=== PATIENT | female | born 1950 | race Caucasian/White ===

== ENCOUNTER 2019-12-13 07:09 | Observation (INO) | payer MEDICARE, OTHER, SELFPAY ==
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
[2019-12-06 09:02] LABS: Magnesium 1.8 mg/dL (1.6-2.6)
[2019-12-13] VITALS (11 sets, daily range): BP systolic 104–171; BP diastolic 49–82; PULSE 45–55; RESP 16–18; TEMP 36.1–36.9; O2SAT 98–100; BMI 44.4
[2019-12-13] MEDS: Gabapentin 600 MG Tablet PO (07:38)
[2019-12-13] MEDS: Acetaminophen 500 MG Tablet 1000 MG PO ×3 (07:38→21:54)
[2019-12-13] MEDS: Celecoxib 200 MG Capsule 400 MG PO (07:38)
[2019-12-13 08:26] LABS: Bedside Glucose 170 mg/dL (70-110)
--- NOTE | 2019-12-13 09:00 | RAD_ITS ---
STUDY: X-RAY - PELVIS AND RIGHT HIP REASON FOR EXAM: Female, 69 years old. TOTAL ANTERIOR RT HIP TECHNIQUE: 3 views of the pelvis and hip. COMPARISON: None. FINDINGS: Fluoroscopy the right hip was utilized and operating room during arthroplasty and 3 images suspended for interpretation. RAD/Hip 1 view with Pelvis IMPRESSION: Fluoroscopy during hip arthroplasty. Electronically Signed: Lincoln Haro MD at 17:12 EDT Tel , Service support ,
--- NOTE | 2019-12-13 09:00 | HIP_PTH ---
PATIENT: KAMI HICKS LOC: [facility]3 U#:[id number] AGE/SX: 69/F ROOM: MS322 RE12/13/[address]: Dr. Natividad Self MD : 1950 BED: 1 DIS: 12/14/2019 SPEC #: [id number] RECD: 12/13/19 11:23 STATUS: JOSE ANTONIO TONY #: [id number] JAYSON: 12/13/19 09:[address]: Anibal River DEPT: SURGICAL PATHOLOGY RECD BY: Soni Medina ENTERED: 12/13/19 13:36 SP TYPE: TOTAL HIP OTHR DR: Dr. Fifi Garay, DO Tissues: Hip, NOS Procedures: Decalcification bone/plaque Surgery Specimen Level IV HEADER OPERATION: Total hip direct anterior approach PRE-OP DIAGNOSIS: Severe right hip osteoarthritis TISSUE SUBMITTED: Right hip bone and soft tissue MICROSCOPIC DIAGNOSIS Bone and soft tissue of right hip, total hip resection: Severe degenerative joint disease. Mild synovial hyperplasia. AM:logan 12/18/19 MICROSCOPIC DESCRIPTION Slides are reviewed. GROSS DESCRIPTION Received is one container labeled with the patient's name and designated right hip bone and soft tissue. The specimen consists of a love femoral head with portion of femoral neck. The femoral head measures 5 x 5 x 3.5 cm. A detached portion of bone is also noted consistent with portion of femoral neck measuring 3.5 x 2.5 x 1.2 cm. The articular surface displays prominent osteophyte formation, eburnation and bone erosion. Also present in the specimen container are multiple irregular fragments of bone reamings and pink-yellow soft tissue measuring in aggregate 8 x 8 x 2 cm. Florist Helper sections are submitted in two cassettes as follows: 1 - soft tissue, 2 - bone after decalcification. / SJ:logan 12/13/19 TC:5 CPT: 86611, 92523
[2019-12-13] MEDS: Cefazolin 2 GM in 0.9% Normal Saline 100 ML IV (09:07)
[2019-12-13] MEDS: dexAMETHasone 10 MG/ML Vial IV (09:16)
--- NOTE | 2019-12-13 10:27 | OP.PCM_ITS ---
Report of Operation Date of Procedure: 12/13/19 Pre-Operative Diagnosis: Right hip primary osteoarthritis with femoral head collapse Post-Operative Diagnosis: Right hip primary osteoarthritis with femoral head collapse Surgery/Procedure Performed:: Right minimally invasive direct anterior total hip replacement Description of Surgical Findings:: Stable hip, equal leg lengths based on radiographs automotive sales specialist: Cristian Peters Type of Anesthesia:: Spinal Anesthesiologist: Dallas Reyes Special Medications: 2 g Ancef, 1 g TXA at incision, 1 g TXA closure, 10 mg Decadron, joint cocktail (5 mg Duramorph, 30 mL of 0.5% Ropivicaine, 1000 units of epinephrine, 30 mg of Toradol) Specimen's removed: Femoral head Estimated Blood Loss (mL): 200 Fluids Replaced: 800 mL crystalloid Description of Procedure: Components used: 1. Accolade 2 Rosi femoral stem size 5 127? 2. Rosi trident 2 acetabular shell size 54 mm 3. Rosi X3 polyethylene 42E 4. [place] Biolox delta 28 mm, -4 mm femoral head 5. Rosi MDM metal liner Brief history operative indications: 69 yo f who failed conservative measures for their hip osteoarthritis. X-rays were consistent with osteoarthritis including joint space narrowing, osteophyte formation and subchondral cysts. Total hip replacement was discussed with the patient with risks and benefits including but not limited to blood loss, DVTs, PEs, neurovascular damage, dislocation, general risks of anesthesia including loss of life. Patient demonstrated an understanding medical clearance is obtained the patient was consented for surgery. Due to the patient's femoral head collapse her activity was existing with that of someone who had a femoral hip fracture. Due to this we discussed at length her weight and how this can affect her outcome. However based on her significant loss of activities of daily living and inability to care for herself we elected to proceed. Procedure: On the date of procedure the patient's R hip was marked in the preoperative area. Patient was then taken back to the operating room where anesthesia assumed control of the C-spine and airway and administered anesthetic. Patient was transferred to the operating table and placed in the supine position. The hips were placed at the break of the bed and a sacral bump was placed. The R lower extremity was then prepped out in a sterile fashion using chlorhexidine while the surgeon scrubbed. The PA was vital in the positioning of the patient. Upon reentering the room the R lower extremity was draped in the standard orthopedic fashion and the incision was marked. A timeout was called and everyone agreed upon the side, the site, the procedure be performed, antibody given, and patient's identity. At this time incision was made through skin, subcutaneous tissue, and fat down to fascia. The fascia was then incised and the TFL was retracted laterally. A retractor was placed on the lateral border of the femoral neck. Attention was directed to the inferior portion of the approach and all crossing vessels were identified and appropriately coagulated. A retractor was then placed on the medial portion of the femoral neck. The anterior capsule was then cleared of all soft tissue and then H shaped capsu lotomy was made. The retractors were then placed inside the capsule. The femoral neck was identified and a cleanup cut was made. At this time a power corkscrew was used to remove the femoral head. Attention was then turned toward the acetabulum where the soft tissues were appropriately retracted and the acetabulum was sequentially reamed to 54 mm. A 54 mm cup was then selected and impacted into place. 2 screws were placed orthogonally. Acetabular liner was impacted into place and locking mechanism was verified. The position of the acetabular cup was then verified under live fluoroscopy. Attention was then turned to the femur. Soft tissue releases on the medial and lateral femoral neck were appropriately done, the leg was externally rotated and lateralized. A Jones retractor was placed medially and proximally to the greater trochanter this allowed appropriate visualization and exposure of the femoral canal. Rongeour was then used to remove excess lateral bone. A canal f magdi and entry broach were used to open the proximal canal. Once we verified we were down the femoral canal we subsequently broached up to a size 5 femur. The appropriate neck was placed in the previously selected head was trialed with a -4 mm neck. Traction was pulled and the hip was reduced with internal rotation. Once it was appropriately reduced and stability was checked. There was minimal shuck, equal leg lengths and appropriate stability with hyperextension and external rotation as well as with 90? flexion and internal rotation. Fluoroscopy was then also used to verify the position of the components and leg lengths using the contralateral side for comparison. The trial components were then dislocated the proximal femur was again exposed and the components were removed from the wound. The final components were verified and opened. The wound was copiously irrigated out with normal saline. The acetabulum was checked for any residual debris. The final components were placed and impacted. Traction and internal rotation were again used to reduce the hip. After adequate reduction the hip remained stable with appropriate leg lengths. The final components were once again checked with live fluoroscopy and were found to be satisfactory. The wound was then copiously irrigated with normal saline once more, and hemostasis was obtained. Closure was then done using #1 Vicryl runner to close the fascia. A 2-0 vicryl interuppted sutures were used to close the subcutaneous skin. A 3-0 Monocryl and Steri-Strips were used for final skin closure. A Silverlon dressing was placed. Patient was awakened by anesthesia and transferred to the [facility]. Patient was then transferred to the PACU for recovery. Postoperative plan: Patient will get 24 hours postop antibiotics. Patient will get in-house physical therapy and will be weight-bear as tolerated. Patient will follow up in office in 2 weeks for a wound check and x-rays. Aspirin 81 mg twice daily. - Complications No intraoperative complications - Admit VTE Documentation VTE Present on Admission: No VTE Mechan Device Prophylaxis: SCD's, Thigh High VIRIDIANA Hose VTE Pharm Prophylaxis ordered?: Yes
[2019-12-13] MEDS: Lactated Ringers 1,000 ML 999 ML IV (11:33)
--- NOTE | 2019-12-13 11:50 | RAD_ITS ---
STUDY: X-RAY - PELVIS AND RIGHT HIP REASON FOR EXAM: Female, 69 years old. Post op TECHNIQUE: 2 views of the pelvis and hip. COMPARISON: None. FINDINGS: The patient is status post right hip preplacement. There is good alignment. Postoperative soft tissue changes. RAD/Hip Min 2 Views (Portable) IMPRESSION: Status post right total hip replacement. There is good alignment. Postoperative soft tissue changes. Electronically Signed: Heriberto Vyas, at 13:21 EDT , Service support ,
[2019-12-13 12:26] LABS: Bedside Glucose 175 mg/dL (70-110)
[2019-12-13] MEDS: Lactated Ringers 1,000 ML 125 ML IV (12:30)
[2019-12-13] MEDS: Senna/Docusate Sodium 1 Tablet 2 TABLET PO ×2 (15:17→21:55)
[2019-12-13] MEDS: Famotidine 20 MG Tablet PO (15:17)
--- NOTE | 2019-12-13 16:32 | CASEMGMT ---
Social Work Note PT updated this worker that pt is requesting SNF at discharge. SW in to speak with pt. SW introduced self and role at [facility]. Pt is alert and orientated x3, confirms she wishes to discharge to SNF and prefers [facility] TCU. SW provided pt with list of SNF that accept pt's insurance. Pt still prefers [facility] TCU. SW placed a call to referral line and provided TCU referral to [facility]. [facility] TCU does have beds available, will review referral. 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
[2019-12-13] MEDS: Cefazolin 1 GM/50 ML BAG IV (18:04)
[2019-12-13] MEDS: Aspirin 81 MG TAB.CHEW PO (18:05)
[2019-12-13] MEDS: Pravastatin 40 MG Tablet PO (21:55)
[2019-12-13] MEDS: Lactated Ringers 1,000 ML 100 ML IV (22:00)
[2019-12-14] MEDS: Cefazolin 1 GM/50 ML BAG IV (00:30)
[2019-12-14 03:15] VITALS: BP 126/51; PULSE 50; RESP 18; TEMP 36.4; O2SAT 98
[2019-12-14 06:05] LABS: Hematocrit 34.6 % (37-47); Hemoglobin 11.1 g/dL (12.0-15.0); Mean Corp Hgb Conc 32.1 g/dL (32-36); Mean Corpuscular Hgb 30.7 pg (27.0-32.0); Mean Corpuscular Volume 95.6 fL (81-99); Mean Platelet Vol. 11.9 fl (6.2-12.0); Platelet Count 233 K/mm3 (150-450); RBC Distribution Width CV 13.8 % (11.6-14.6); RBC Distribution Width SD 48.9 fl (35.1-43.9); Red Blood Count 3.62 M/mm3 (4.2-5.4); White Blood Count 7.1 K/mm3 (4.4-11.0)
[2019-12-14 06:26] LABS: Anion Gap 3 (5-15); BUN 16 mg/dL (7-18); Calcium,Total 9.2 mg/dL (8.5-10.1); Chloride 108 mmol/L (98-107); Creatinine, Serum 0.84 mg/dL (0.55-1.02); EST Glomerular Filtration Rate 71 mL/min (>60); Est Glom Filt Rate - Afr Amer 86 mL/min (>60); Estimated Creatinine Clearance 46.35 ml/min; Glucose 135 mg/dL (74-106); Potassium 4.6 mmol/L (3.5-5.1); Sodium Level 140 mmol/L (136-145)
[2019-12-14] MEDS: Acetaminophen 500 MG Tablet 1000 MG PO ×2 (06:36→13:43)
[2019-12-14] MEDS: Levothyroxine 50 MCG Tablet PO (06:36)
[2019-12-14 07:17] VITALS: BP 130/47; PULSE 53; RESP 18; TEMP 36.5; O2SAT 99
[2019-12-14 07:44] VITALS: O2SAT 97
[2019-12-14] MEDS: Magnesium Chloride 64 MG Delay Rel.Tablet 128 MG PO (09:04)
[2019-12-14] MEDS: Famotidine 20 MG Tablet PO (09:05)
[2019-12-14] MEDS: Aspirin 81 MG TAB.CHEW PO ×2 (09:05→16:42)
[2019-12-14] MEDS: Multivitamins,Therapeutic Tablet 1 TABLET PO (09:05)
[2019-12-14] MEDS: Senna/Docusate Sodium 1 Tablet 2 TABLET PO (09:05)
[2019-12-14] MEDS: Calcium Carbonate 500 MG Tablet PO (09:05)
[2019-12-14] MEDS: Pantoprazole Sodium 20 MG Tablet PO (09:06)
[2019-12-14] MEDS: Atenolol 50 MG Tablet PO (09:06)
[2019-12-14] MEDS: Celecoxib 200 MG Capsule PO (09:06)
--- NOTE | 2019-12-14 10:55 | PN.ORTHO_ITS ---
Subjective: The patient was sitting in bed upon examination. Patient denies any chest pain, shortness of breath, dizziness, lightheadedness, nausea or vomiting, or calf pain. Pain is controlled on medications. No adverse overnight events. Overall patient has been doing well. She has tolerated physical therapy well. She does have pain when she is up walking. Pain is been controlled on medications. Plan is for patient to go to the transitional care unit today. Objective: Vital signs stable and afebrile. Patient is able to plantarflex and dorsiflex actively. Sensation is intact to light touch to saphenous, sural, superficial and deep peroneal, and tibial distribution. Dressing is clean dry and intact. Negative Homans bilaterally, negative signs and symptoms of DVT. - Physical Exam Vitals/I&O's: Vital Signs Temp Pulse Resp BP Pulse Ox 97.7 F L 53 L 18 130/47 H 97 12/14/19 07:17 12/14/19 07:17 12/14/19 07:17 12/14/19 07:17 12/14/19 07:44 Oxygen Flow Rate (L/min) 6 Oxygen Delivery Method Room Air Weight: 106.7 kg Body Mass Index (BMI) 44.4 Finger Stick Blood Glucose 175 Intake and Output for Last 24 Hours 12/12/19 12/13/19 12/14/19 23:59 23:59 23:59 Intake Total 3246.50 / 3246.50 1011.67 / 1011.67 Balance 3246.50 / 3246.50 1011.67 / 1011.67 General: Alert, Oriented x3, Cooperative, No apparent distress Laboratory Results 12/13/19 12:19: POC Glucose 175 H 12/14/19 05:40: WBC 7.1, RBC 3.62 L, Hgb 11.1 L, Hct 34.6 L, MCV 95.6, MCH 30.7, MCHC 32.1, RDW Std Deviation 48.9 H, RDW Coeff of Jaclyn 13.8, Plt Count 233, MPV 11.9 12/14/19 05:40: Sodium 140, Potassium 4.6, Chloride 108 H, Carbon Dioxide 29.0, Anion Gap 3 L, BUN 16, Creatinine 0.84, Estim Creat Clear Calc 46.35, Est GFR (MDRD) Af Amer 86, Est GFR (MDRD) Non-Af 71, BUN/Creatinine Ratio 19.0, Glucose 135 H, Calcium 9.2 Current Medications Acetaminophen (Acetaminophen 500 Mg Tablet) 1,000 mg PO Q8 [facility] Last Admin: 12/14/19 06:36 Dose: 1,000 mg Documented by: Aspirin (Aspirin 81 Mg Tab.Chew) 81 mg PO BIDCM [facility] Last Admin: 12/14/19 09:05 Dose: 81 mg Documented by: Atenolol (Atenolol 50 Mg Tablet) 50 mg PO DAILY [facility] Last Admin: 12/14/19 09:06 Dose: 50 mg Documented by: Calcium Carbonate (Calcium Carbonate 500 Mg Tablet) [facility] Admin: 12/14/19 09:05 Dose: 500 mg Documented by: Celecoxib (Celecoxib 200 Mg Capsule) 200 mg PO DAILY [facility] Last Admin: 12/14/19 09:06 Dose: 200 mg Documented by: Enteral Nutritional Formula (Ensure Surgery 237 Ml Liquid) 237 ml PO TIDCM [facility] Last Admin: 12/14/19 09:05 Dose: Not Given Documented by: Ergocalciferol (Ergocalciferol 50,000 Unit Capsule) 50,000 unit PO Q7D [facility] Famotidine (Famotidine 20 Mg Tablet) 20 mg PO DAILY [facility] Last Admin: 12/14/19 09:05 Dose: 20 mg Documented by: Sodium Chloride () 250 mls @ 15 mls/hr IV .[id number] PRN PRN Reason: Saline Flush Sodium Chloride () 250 mls @ 15 mls/hr IV .[id number] PRN PRN Reason: Additional IVPB Infusion Insulin Human Lispro (Insulin Lispro 100 Unit/Ml Insuln.Pen) 1 - 6 unit SC Q4H PRN PRN; Protocol PRN Reason: BG>/= 180, SEE PROTOCOL Ketorolac Tromethamine (Ketorolac 15 Mg/Ml Vial) 15 mg IV Q6H PRN PRN PRN Reason: Pain Score 1-5 Stop: 12/15/19 07:11 Levothyroxine Sodium (Levothyroxine 50 Mcg Tablet) 50 mcg PO DAILY@0600 [facility] Last Admin: 12/14/19 06:36 Dose: 50 mcg Documented by: Magnesium Chloride (Magnesium Chloride 64 Mg Delay Rel.Tablet) 128 mg PO DAILY [facility] Last Admin: 12/14/19 09:04 Dose: 128 mg Documented by: Morphine Sulfate (Morphine 2 Mg/Ml Syringe) 2 - 4 mg IV Q2H PRN PRN PRN Reason: Pain Score 4-10 Morphine Sulfate (Morphine 4 Mg/Ml Syringe) 2 - 4 mg IV Q2H PRN PRN PRN Reason: Pain Score 4-10 Multivitamins (Multivitamins,Therapeutic Tablet) 1 tablet PO DAILY@0800 [facility] Last Admin: 12/14/19 09:05 Dose: 1 tablet Documented by: Ondansetron HCl (Ondansetron Odt 4 Mg Tablet) 4 mg PO Q8H PRN PRN PRN Reason: NAUSEA Ondansetron HCl (Ondansetron 4 Mg/2 Ml Vial) 4 mg IV Q8H PRN PRN PRN Reason: NAUSEA Oxycodone HCl (Oxycodone 5 Mg Tablet) 2.5 mg PO Q4H PRN PRN PRN Reason: Pain Score 4-10 Pantoprazole Sodium (Pantoprazole Sodium 20 Mg Tablet) 20 mg PO DAILY [facility] Last Admin: 12/14/19 09:06 Dose: 20 mg Documented by: Pravastatin Sodium (Pravastatin 40 Mg Tablet) 40 mg PO QHS [facility] Last Admin: 12/13/19 21:55 Dose: 40 mg Documented by: Promethazine HCl (Promethazine 25 Mg/Ml Syringe) 12.5 mg IM Q6H PRN PRN; Protocol PRN Reason: NAUSEA/VOMITING Senna/Docusate Sodium (Senna/Docusate Sodium 1 Tablet) 2 tablet PO BID [facility] Last Admin: 12/14/19 09:05 Dose: 2 tablet Documented by: Sodium Chloride (0.9% Saline Lock 10 Ml Syringe) 10 - 40 ml IV UD PRN PRN Reason: SALINE FLUSH Medical Necessity - Tobacco Use Smoking Status: Never smoker Assessment/Plan 1. S/P right direct anterior total hip arthroplasty POD #1 2. Continue Pain Medications: Tylenol, Celebrex, oxycodone for breakthrough pain 3. DVT Prophylaxis: Take 81 mg aspirin twice daily for 4 weeks postoperatively for DVT prophylaxis 4. PT/OT: Weightbearing as tolerated 5. H & H: 11.1/34.6, asymptomatic 6. Encouraged Incentive Spirometry 7. Disposition: Plan will be for discharge to the transitional care unit at [facility] pending a negative Covid test. Covid test was placed in chart. Patient will continue with above pain medications. Continue with DVT prophylaxis. She will be weightbearing as tolerated. The dressing can be removed on postoperative day #5 on December 18, 2019. After the removal of the dressing, she will need to use a washcloth, ABD, or [address] in between the incision and pannus. She will follow-up per postop instructions. Prescription will be attached to chart. I have reviewed the [place] Automated Rx Reporting System (OARRS) report for this patient for refill pattern and other prescriber involvement as part of the appropriate surveillance for the provision of acute and chronic controlled medications. The report was requested and reviewed on the date of this entry and was considered in the prescribing process.
--- NOTE | 2019-12-14 11:04 | DCINST_ITS ---
Discharge Diet: No Restrictions Discharge Activity: May Not Drive - while taking narcotic pain medications. May shower in (days): 1 - Dressing must be intact the skin, turn dressing away from water Ice area for (Minutes): 20 - Every 1-2 hours while awake Weight Bearing Status: Weight bearing as tolerated - With walker Elevate: Operative Extremity Additional Activity Instructions:: Wear elastic stockings for 2 weeks. DO NOT use alcohol with narcotic pain medication. DO NOT make important decisions while taking narcotic medication. If you have problems with taking your medication (rash, itching, nausea, etc.) call the office at once. Call your doctor if your incision/area has: Increased Pain/ Swelling, Increased Redness, Foul Smelling Discharge Call your doctor if you observe: Fever of 101 or Higher Remove Dressing in (days):: 4 - Okay to remove dressing on December 18, 2019 Additional Instructions: After removal of dressing, patient must use a washcloth, ABD, or 4 x 4 in between the incision and skin fold until the incision is well-healed after 6 weeks Follow orthopedic postop instructions Allergies/Adverse Reactions: Allergies Tetracyclines Allergy (Verified 12/13/19 07:02) PT UNSURE OF REACTION psuedotumor Medications to take at Discharge Atenolol [Tenormin (beta lobo)] 50 mg PO DAILY 11/29/19 Biotin 5,000 mcg PO DAILY 11/29/19 Calcium Citrate 500 mg PO DAILY 11/29/19 Celecoxib [Celebrex] 200 mg PO DAILY 11/29/19 Cyanocobalamin (Vitamin B-12) [Vitamin B-12] 500 mcg SL DAILY 11/29/19 Ergocalciferol [Vitamin D] 50,000 unit PO Q7D 11/29/19 Levothyroxine Sodium 50 mcg PO DAILY 11/29/19 Magnesium Oxide [Magnesium] 500 mg PO DAILY 11/29/19 Multivitamin [One-Daily Multi-Vitamin] 1 ea PO DAILY 11/29/19 Omeprazole 20 mg PO DAILY 11/29/19 Ondansetron [Zofran Odt] 4 mg PO Q8H PRN PRN 11/29/19 Pravastatin Sodium 40 mg PO QHS 11/29/19 Acetaminophen [Tylenol] 1,000 mg PO Q8 14 Days tablet 12/14/19 Aspirin [Aspirin, Baby] 81 mg PO BIDCM 30 Days tab 12/14/19 Oxycodone [Oxyir] 2.5 mg PO Q4H PRN PRN 5 Days #30 tab 12/14/19 Senna/Docusate Sodium [Senokot-S] 2 tablet PO BID 3 Days tablet 12/14/19 The following prescriptions were given: Oxycodone [Oxyir] 2.5 mg PO Q4H PRN PRN 5 Days #30 tab PRN Reason: Pain Score 4-10 Prescription Printed Primary Care Physician: Fifi Garay DO [Primary Care Provider] - Test Results: Test results from this visit will be discussed in further detail at your follow- up appointment, if applicable. Please Follow Up With: Neo Manzo PA-C When: 12/27/19 @ 9:15 am
--- NOTE | 2019-12-14 11:40 | PN_ITS ---
Reason for Visit: Patient was admitted to the orthopedic service for right anterior hip replacement. Hospitalist service is being consulted for medical management. Patient seen and examined. She feels well today. She compalined of pain rated 8 out of 10, and said she had just worked with therapy, so that accounted for the pain. She denied any nausea, vomiting or diarrhea. Review of signs otherwise negative. Abdomen hemodynamically stable. She has been noted to be bradycardic since admission with heart rate in the 40s and 50s. Vitals/I&O's: Vital Signs Temp Pulse Resp BP Pulse Ox 97.7 F L 53 L 18 130/47 H 97 12/14/19 07:17 12/14/19 07:17 12/14/19 07:17 12/14/19 07:17 12/14/19 07:44 Oxygen Flow Rate (L/min) 6 Oxygen Delivery Method Room Air Weight: 235 lb 3.732 oz Body Mass Index (BMI) 44.4 Finger Stick Blood Glucose 175 Intake and Output for Last 24 Hours 12/12/19 12/13/19 12/14/19 23:59 23:59 23:59 Intake Total 3246.50 / 3246.50 1011.67 / 1011.67 Balance 3246.50 / 3246.50 1011.67 / 1011.67 General: Alert, Oriented x3, Cooperative, No apparent distress HEENT: Atraumatic, PERRLA, EOMI, Normocephalic Oral: Moist Mucosa Neck: Supple, No JVD, Negative Carotid Bruits Lungs: Clear to auscultation, Normal air movement, No rhonchi, No wheeze, No rales Cardiovascular: Regular rate, Regular Rhythm, Normal S1, Normal S2, No murmurs Abdomen: Bowel Sounds Present, Soft, Non Tender, Non-Distended, No Hepato- splenomegaly Extremities: No clubbing, No cyanosis, No edema, Capillary Refill Less than 3 Seconds Skin: No rashes, No breakdown Musculoskeletal: No Tenderness to Palpation of Joints or Extremities, - - dressing over right anterior hip Lymphatic: No Cervical, Supraclavicular, or Inguinal Adenopathy Neurological: Cranial nerves II-XII grossly intact Psych/Mental Status: Normal Affect, Appropriate, Alert and oriented to time, place, person, mood and affect Laboratory Results 12/13/19 12:19: POC Glucose 175 H 10/22/20 05:40: WBC 7.1, RBC 3.62 L, Hgb 11.1 L, Hct 34.6 L, MCV 95.6, MCH 30.7, MCHC 32.1, RDW Std Deviation 48.9 H, RDW Coeff of Jaclyn 13.8, Plt Count 233, MPV 11.9 12/14/19 05:40: Sodium 140, Potassium 4.6, Chloride 108 H, Carbon Dioxide 29.0, Anion Gap 3 L, BUN 16, Creatinine 0.84, Estim Creat Clear Calc 46.35, Est GFR (MDRD) Af Amer 86, Est GFR (MDRD) Non-Af 71, BUN/Creatinine Ratio 19.0, Glucose 135 H, Calcium 9.2 12/14/19 11:14: COVID-19 (URVASHI) Pending Diagnostic Data Hip/Pelvis X-Ray 12/13/19 09:00 IMPRESSION: Fluoroscopy during hip arthroplasty. Electronically Signed: Lincoln Haro MD at 17:12 EDT Tel , Service support , Hip X-Ray 12/13/19 11:50 IMPRESSION: Status post right total hip replacement. There is good alignment. Postoperative soft tissue changes. Electronically Signed: Heriberto Vyas at 13:21 EDT , Service support , Current Medications Acetaminophen (Acetaminophen 500 Mg Tablet) 1,000 mg PO Q8 [facility] Last Admin: 12/14/19 06:36 Dose: 1,000 mg Documented by: Aspirin (Aspirin 81 Mg [facility].Chew) [facility] Last Admin: 12/14/19 09:05 Dose: 81 mg Documented by: Atenolol (Atenolol 50 Mg Tablet) 50 mg PO DAILY [facility] Last Admin: 12/14/19 09:06 Dose: 50 mg Documented by: Calcium Carbonate (Calcium Carbonate 500 Mg Tablet) [facility] Last Admin: 12/14/19 09:05 Dose: 500 mg Documented by: Celecoxib (Celecoxib 200 Mg Capsule) 200 mg PO DAILY [facility] Last Admin: 12/14/19 09:06 Dose: 200 mg Documented by: Enteral Nutritional Formula (Ensure Surgery 237 Ml Liquid) 237 ml PO TIDCM [facility] Last Admin: 12/14/19 09:05 Dose: Not Given Documented by: Ergocalciferol (Ergocalciferol 50,000 Unit Capsule) 50,000 unit PO Q7D [facility] Famotidine (Famotidine 20 Mg Tablet) 20 mg PO DAILY [facility] Last Admin: 12/14/19 09:05 Dose: 20 mg Documented by: Sodium Chloride () 250 mls @ 15 mls/hr IV .[id number] PRN PRN Reason: Saline Flush Sodium Chloride () 250 mls @ 15 mls/hr IV .[id number] PRN PRN Reason: Additional IVPB Infusion Insulin Human Lispro (Insulin Lispro 100 Unit/Ml Insuln.Pen) 1 - 6 unit SC Q4H PRN PRN; Protocol PRN Reason: BG>/= 180, SEE PROTOCOL Ketorolac Tromethamine (Ketorolac 15 Mg/Ml Vial) 15 mg IV Q6H PRN PRN PRN Reason: Pain Score 1-5 Stop: 12/15/19 07:11 Levothyroxine Sodium (Levothyroxine 50 Mcg Tablet) 50 mcg PO DAILY@0600 [facility] Last Admin: 12/14/19 06:36 Dose: 50 mcg Documented by: Magnesium Chloride (Magnesium Chloride 64 Mg Delay Rel.Tablet) 128 mg PO DAILY [facility] Last Admin: 12/14/19 09:04 Dose: 128 mg Documented by: Morphine Sulfate (Morphine 2 Mg/Ml Syringe) 2 - 4 mg IV Q2H PRN PRN PRN Reason: Pain Score 4-10 Morphine Sulfate (Morphine 4 Mg/Ml Syringe) 2 - 4 mg IV Q2H PRN PRN PRN Reason: Pain Score 4-10 Multivitamins (Multivitamins,Therapeutic Tablet) 1 tablet PO DAILY@0800 [facility] Last Admin: 12/14/19 09:05 Dose: 1 tablet Documented by: Ondansetron HCl (Ondansetron Odt 4 Mg Tablet) 4 mg PO Q8H PRN PRN PRN Reason: NAUSEA Ondansetron HCl (Ondansetron 4 Mg/2 Ml Vial) 4 mg IV Q8H PRN PRN PRN Reason: NAUSEA Oxycodone HCl (Oxycodone 5 Mg Tablet) 2.5 mg PO Q4H PRN PRN PRN Reason: Pain Score 4-10 Pantoprazole Sodium (Pantoprazole Sodium 20 Mg Tablet) 20 mg PO DAILY [facility] Last Admin: 12/14/19 09:06 Dose: 20 mg Documented by: Pravastatin Sodium (Pravastatin 40 Mg Tablet) 40 mg PO QHS [facility] Last Admin: 12/13/19 21:55 Dose: 40 mg Documented by: Promethazine HCl (Promethazine 25 Mg/Ml Syringe) 12.5 mg IM Q6H PRN PRN; Protocol PRN Reason: NAUSEA/VOMITING Senna/Docusate Sodium (Senna/Docusate Sodium 1 Tablet) 2 tablet PO BID [facility] Last Admin: 12/14/19 09:05 Dose: 2 tablet Documented by: Sodium Chloride (0.9% Saline Lock 10 Ml Syringe) 10 - 40 ml IV UD PRN PRN Reason: SALINE FLUSH STROKE Vital Signs/Narrative: Vital Signs Pulse Ox 12/14/19 07:44 97 Medical Necessity - Tobacco Use Smoking Status: Never smoker Assessment/Plan # osteoarthritis s/p right anterior total hip replacement * today is POD 1 * patient is stable; * on PO tylenol, morphine and oxycodone for pain * on bowel regimen * # Bradycardia: HR has been in the 40s and 50s. on atenolol 50mg daily. Will cut down dose. check TSH as she has hypothyroidism # Hypetension: on atenolol #Hyperlipidemia: on synthroid # Hypothyroidism: on statin DBT prophylaxis: on aspirin 81mg bid as per orthopedics. Thank you for the courtesy of the consult. We will continue to follow with you. Inpatient E&M: 93422 Subs Hosp L2
[2019-12-14 13:46] VITALS: BP 138/56; PULSE 55; RESP 18; TEMP 36.7; O2SAT 98
--- NOTE | 2019-12-14 13:51 | CASEMGMT ---
LUCIUS GUTIÉRREZ in to discuss HE form with patient. RN BROCK explained HE form to patient, patient voiced understanding. Patient signed HE form and placed in chart. Patient provided with copy of signed HE form. Patient had no further questions or concerns.
[2019-12-14 13:56] LABS: Thyroid Stim Hormone (TSH) 0.71 uIU/mL (0.358-3.74)
--- NOTE | 2019-12-14 14:04 | CHAPLAIN ---
Type of Pastoral Visit _x__ Initial Visit ___ Follow-up Visit ___ On-call Visit ___ General Patient Visit ___ Spiritual Assessment ___ Family Conference ___ Bereavement ___ Rapid Response ___ Code Blue ___ Other (describe below) Pastoral Care Referral From ___ Patient _x__ Family ___ Nurse ___ Physician ___ Cream Ripener ___ Recovery Agent ___ Other (describe below) Sacrament/Intervention _x__ Active listening ___ Anointing ___ Methodist ___ Bereavement ___ Communion _x__ Aparna exploration ___ _x__ Life review _x__ Prayer ___ Reconciliation ___ Sacrament of Sick _x__ Supportive presence ___ Wedding ___ Other (describe below) Pastoral Comments
--- NOTE | 2019-12-14 15:40 | CASEMGMT ---
Social Work Note SW received message from Zeina in TCU stating TCU is able to accept pt, will need updated COVID. SW updated PA. Pt is ready to discharge to TCU, pt's COVID came back negative. SW updated pt on discharge to TCU. Pt states understanding. VICENTE placed a call to Zeina in TCU and updated her that pt will be discharged to TCU today. 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
--- NOTE | 2019-12-14 16:52 | NURSING ---
REport called to Karli KAN in TCU.
== END 2019-12-14 17:03 | disposition skilled nursing facility (03) ==
LOC: SDC 09:09 → MS3 09:09
PROVIDERS: Anesthesiology; Physician Assistant Surgical; Admitting Provider Specialist; Referring Provider Specialist; Visit Provider Student in an Organized Health Care Education/Training Program
PROC: (CPT 27284; principal; 2019-12-13 08:35)
DX: M16.11 Unilateral primary osteoarthritis, right hip (principal); Z20.828 Contact with and (suspected) exposure to other viral communicable diseases; E03.9 Hypothyroidism, unspecified; I10 Essential (primary) hypertension; E11.9 Type 2 diabetes mellitus without complications; G47.30 Sleep apnea, unspecified; E78.5 Hyperlipidemia, unspecified; R00.1 Bradycardia, unspecified; Z98.84 Bariatric surgery status; Z87.891 Personal history of nicotine dependence; Z79.899 Other long term (current) drug therapy; Z79.82 Long term (current) use of aspirin
CPT/HCPCS: 01214; 27130; 36415; 73501; 73502; 76000; 80048; 82962; 83735; 84443; 85027; 87081; 87635; 88305; 88311; 94762; 96361; 96365; 96366; 97116; 97162; 97166; 97530; 97535; 99218; 99251; C1713; C1776; C9803; J7120; G0378; G0463; U0002; U0003

== ENCOUNTER 2019-12-14 17:13 | Inpatient (IN) | payer MEDICARE, OTHER, SELFPAY ==
[2019-12-13 13:28] VITALS: BMI 44.4
[2019-12-14 17:23] VITALS: BP 119/79; PULSE 57; RESP 12; TEMP 36.9; O2SAT 100; BMI 43.1
[2019-12-14 18:42] VITALS: BMI 43.2
[2019-12-14 18:59] VITALS: PULSE 65; RESP 18; O2SAT 97
[2019-12-14] MEDS: Acetaminophen 500 MG Tablet 1000 MG PO (20:53)
[2019-12-14] MEDS: Pravastatin 40 MG Tablet PO (20:54)
--- NOTE | 2019-12-14 21:12 | PCM.HP.STD ---
Problem List (1) Debility Status: Acute (2) Osteoarthritis of right hip Status: Acute (3) Diabetes mellitus Status: Chronic (4) Hypertension Status: Chronic (5) Hyperlipidemia Status: Chronic (6) Hypothyroidism Status: Chronic (7) Osteoarthritis Status: Chronic (8) Body mass index (BMI) 35 or more Status: Chronic (9) GERD (gastroesophageal reflux disease) Status: Chronic (10) Vitamin D deficiency Status: Chronic (11) Hypomagnesemia Status: Chronic History of Present Illness Date of Admission: 12/14/19 Chief Complaint: Here for rehabilitation, strengthening, prior to discharge home alone. The patient is a 69 year old Female with below past medical history with followin12/13/19 Orthopedics performed right minimally invasive direct anterior total hip replacement. 12/14/19 Bradycardia treated with lowering Atenolol dose. 12/14/19 Admit to TCU with debility, here for rehabilitation, strengthening, prior to discharge home alone. Past Medical History Past Medical History (Chronic Problems): Chronic Problems Diabetes mellitus (Chronic) Hypertension (Chronic) Hyperlipidemia (Chronic) Hypothyroidism (Chronic) Osteoarthritis (Chronic) Body mass index (BMI) 35 or more (Chronic) GERD (gastroesophageal reflux disease) (Chronic) Vitamin D deficiency (Chronic) Hypomagnesemia (Chronic) Allergies Tetracyclines Allergy (Verified 12/13/19 07:02) PT UNSURE OF REACTION psuedotumor Home Medications: Ambulatory Orders Medication Instructions Recorded Atenolol [Tenormin (beta lobo)] 50 mg PO DAILY 11/29/19 Biotin 5,000 mcg PO DAILY 11/29/19 Calcium Citrate 500 mg PO DAILY 11/29/19 Celecoxib [Celebrex] 200 mg PO DAILY 11/29/19 Cyanocobalamin (Vitamin B-12) 500 mcg SL DAILY 11/29/19 [Vitamin B-12] Ergocalciferol [Vitamin D] 50,000 unit PO Q7D 11/29/19 Levothyroxine Sodium 50 mcg PO DAILY 11/29/19 Magnesium Oxide [Magnesium] 500 mg PO DAILY 11/29/19 Multivitamin [One-Daily 1 ea PO DAILY 11/29/19 Multi-Vitamin] Omeprazole 20 mg PO DAILY 11/29/19 Ondansetron [Zofran Odt] 4 mg PO Q8H PRN PRN 11/29/19 Pravastatin Sodium 40 mg PO QHS 11/29/19 Acetaminophen [Tylenol] 1,000 mg PO Q8 12/14/19 Aspirin [Aspirin, Baby] 81 mg PO BIDCM 12/14/19 Oxycodone [Oxyir] 2.5 mg PO Q4H PRN PRN 5 Days #30 12/14/19 tab Senna/Docusate Sodium [Senokot-S] 2 tab PO BID 12/14/19 Surgical History: hysterectomy, total hip arthroplasty - Right., total knee arthroplasty - Bilateral., tonsillectomy, - - Tubal ligation, Bariatric surgery, carpal tunnel release, rotator cuff surgery. 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 history Lives: Alone Smoking Status: Never smoker Tobacco Use: Non-smoker Alcohol: Occasional Drugs: None - *Family History Maternal History Items: No pertinent history Paternal History Items: No pertinent history Review of Systems Constitutional: Denies: Chills, Fever, Weight Change HEENT: Denies: Head Aches, Sinus Congestion, Sinus Drainage Cardiovascular: Denies: Chest Pain, Palpitations Respiratory: Denies: Cough, Shortness of breath at rest, Sputum production Gastrointestinal: Denies: Abdominal Pain, Nausea, Vomiting Genitourinary: Denies: Dysuria Musculoskeletal: Denies: Joint Pain, Joint Tenderness Skin: Denies: Rash, Wounds Neurological: Denies: Numbness, Tingling, Focal weakness Psychiatric: Denies: Anxiety, Depression, Homicidal Ideations, Suicidal Ideations Hematologic/ Lymphatic: Denies: Easy Bruising, Easy Bleeding VTE Information - Inpt Only VTE Present on Admission: No VTE Mechan Device Prophylaxis: Knee High VIRIDIANA Hose VTE Pharm Prophylaxis ordered?: Yes Patient Problems: Active and Suspected Problems Debility (Acute) Osteoarthritis of right hip (Acute) - Physical Exam Vitals/I&O's: Vital Signs Temp Pulse Resp BP Pulse Ox 98.4 F 65 18 119/79 97 12/14/19 17:23 12/14/19 18:59 12/14/19 18:59 12/14/19 17:23 12/14/19 18:59 Oxygen Delivery Method Room Air Weight: 107.048 kg Body Mass Index (BMI) 43.1 Finger Stick Blood Glucose 175 General: Alert, Oriented x3, Cooperative HEENT: Atraumatic, PERRLA, EOMI, Normocephalic Neck: Supple, No JVD, Negative Carotid Bruits Lungs: Clear to auscultation, Normal air movement Cardiovascular: Regular rate, No murmurs Abdomen: Bowel Sounds Present, Soft, Non Tender Extremities: No edema, Capillary Refill Less than 3 Seconds Skin: No rashes, No breakdown Musculoskeletal: No Tenderness to Palpation of Joints or Extremities Neurological: Cranial nerves II-XII grossly intact Psych/Mental Status: Normal Affect, Appropriate Current Medications Acetaminophen (Acetaminophen 500 Mg Tablet) 1,000 mg PO Q8 [facility] Last Admin: 12/14/19 20:53 Dose: 1,000 mg Documented by: Aspirin (Aspirin 81 Mg Tab.Chew) 81 mg PO BIDCM [facility] Stop: 01/10/20 20:00 Atenolol (Atenolol 50 Mg Tablet) 50 mg PO DAILY [facility] Calcium Carbonate (Calcium Carbonate 500 Mg Tablet) [facility] Celecoxib (Celecoxib 200 Mg Capsule) [facility] Cyanocobalamin (Cyanocobalamin 500 Mcg Tablet) 500 mcg PO DAILY [facility] Ergocalciferol (Ergocalciferol 50,000 Unit Capsule) 50,000 unit PO Q7D [facility] Levothyroxine Sodium (Levothyroxine 50 Mcg Tablet) 50 mcg PO DAILY [facility] Magnesium Chloride (Magnesium Chloride 64 Mg Delay Rel.Tablet) 128 mg PO DAILY [facility] Multivitamins (Multivitamins,Therapeutic Tablet) 1 tablet PO DAILY@0800 [facility] Ondansetron HCl (Ondansetron Odt 4 Mg Tablet) 4 mg PO Q8H PRN PRN PRN Reason: NAUSEA Oxycodone HCl (Oxycodone 5 Mg Tablet) 2.5 mg PO Q4H PRN PRN PRN Reason: Pain Score 4-10 Pantoprazole Sodium (Pantoprazole Sodium 20 Mg Tablet) 20 mg PO DAILY [facility] Pravastatin Sodium (Pravastatin 40 Mg Tablet) 40 mg PO QHS [facility] Last Admin: 12/14/19 20:54 Dose: 40 mg Documented by: Tuberculin PPD (Tuberculin,Purif.Prot.Deriv. 50 Tu/Ml Vial) 5 tu ID [id number] Stop: 12/15/19 10:01 Tuberculin PPD (Tuberculin,Purif.Prot.Deriv. 50 Tu/Ml Vial) 5 tu ID [id number] ONE Stop: 12/22/19 10:01 Assessment/Plan All Active Problems Debility (Acute) Osteoarthritis of right hip (Acute) 69 year old female with below past medical history hospitalized for right total hip replacement 12/13/19 per Orthopedics, complicated by bradycardia, admitted to TCU with debility, here for rehabilitation, strengthening, prior to discharge home alone. Debility - PT/OT. Pain - Tylenol 1000MG Q8H, Oxycodone 2.5MG Q4H PRN pain (4-10). Bowel - Miralax 17GM daily, Senna/colace 1 tablet BID, MOM 30ML daily PRN, Dulcolax 10MG [place] daily PRN. Adult immunization - Administer Prevnar 13, Pneumovax 23, Fluzone as appropriate. DVT prophylaxis - Aspirin 81MG BID thru 01/10/20. Hypertension - Atenolol 50MG daily. Calcium deficiency - TUMS 500MG daily. Osteoarthritis - Celebrex 200MG daily. Vitamin B12 deficiency - B12 500MCG daily. Vitamin D deficiency - Vitamin D2 50,000 units per week. Hypothyroidism - Levothyroxine 50MCG daily. Hypomagnesemia - Magnesium 128MG daily. Nutrition - MVI daily. Nausea - Zofran 4MG Q8H PRN. GERD - Pantoprazole 20MG daily. Hyperlipidemia - Pravastatin 40MG QHS.
[2019-12-15 05:47] LABS: Absolute Lymphocyte Count 1.56 X10^3/uL (0.83-4.51); Absolute Neutrophil Count 4.7 X10^3/uL (2.0-7.7); Basophil# 0.02 X10^3/uL; Basophil% 0.3 % (0-1); Eosinophil# 0.35 X10^3/uL; Eosinophils% 4.8 % (0-5); Hematocrit 32.5 % (37-47); Hemoglobin 10.5 g/dL (12.0-15.0); Lymphocyte # 1.56 X10^3/ul (4.0); Lymphocyte % 21.4 % (19-41); Mean Corp Hgb Conc 32.3 g/dL (32-36); Mean Corpuscular Volume 95.9 fL (81-99); Mean Platelet Vol. 12.2 fl (6.2-12.0); Monocyte# 0.61 X10^3/uL; Monocyte% 8.4 % (0-10); NRBC Flagged by Analyzer 0 % (0-5); Neutrophil # 4.73 X10^3/uL (2.7-7.7); Neutrophil % 64.8 % (47-70); Platelet Count 235 K/mm3 (150-450); RBC Distribution Width CV 13.9 % (11.6-14.6); RBC Distribution Width SD 49.1 fl (35.1-43.9); Red Blood Count 3.39 M/mm3 (4.2-5.4); White Blood Count 7.3 K/mm3 (4.4-11.0)
[2019-12-15 06:00] LABS: Anion Gap 5 (5-15); BUN 16 mg/dL (7-18); BUN/Creat Ratio 18.8 RATIO (10-20); Calcium,Total 8.7 mg/dL (8.5-10.1); Chloride 107 mmol/L (98-107); Creatinine, Serum 0.85 mg/dL (0.55-1.02); EST Glomerular Filtration Rate 70 mL/min (>60); Est Glom Filt Rate - Afr Amer 84 mL/min (>60); Estimated Creatinine Clearance 48.01 ml/min; Glucose 139 mg/dL (74-106); Potassium 4.4 mmol/L (3.5-5.1); Sodium Level 140 mmol/L (136-145)
[2019-12-15 06:41] VITALS: BP 124/73; PULSE 68; RESP 16; TEMP 36.8; O2SAT 16
[2019-12-15] MEDS: Pantoprazole Sodium 20 MG Tablet PO (06:44)
[2019-12-15] MEDS: Levothyroxine 50 MCG Tablet PO (06:44)
[2019-12-15] MEDS: Acetaminophen 500 MG Tablet 1000 MG PO ×3 (06:44→21:09)
[2019-12-15] MEDS: Cyanocobalamin 500 MCG Tablet PO (06:44)
[2019-12-15] MEDS: Polyethylene Glycol 3350 17 GM PACKET PO (06:44)
[2019-12-15] MEDS: Atenolol 50 MG Tablet PO (06:44)
[2019-12-15] MEDS: Magnesium Chloride 64 MG Delay Rel.Tablet 128 MG PO (06:44)
[2019-12-15] MEDS: Senna/Docusate Sodium 1 Tablet PO ×2 (06:45→17:57)
[2019-12-15] MEDS: Nystatin Powder 15gm Bottle 1 APPLIC TOPICAL ×2 (06:47→17:57)
[2019-12-15] MEDS: Celecoxib 200 MG Capsule PO (09:13)
[2019-12-15] MEDS: Calcium Carbonate 500 MG Tablet PO (09:13)
[2019-12-15] MEDS: Multivitamins,Therapeutic Tablet 1 TABLET PO (09:13)
[2019-12-15] MEDS: Aspirin 81 MG TAB.CHEW PO ×2 (09:13→17:55)
[2019-12-15] MEDS: Iron Polysaccharide Complex 150 MG CAPSULE PO (09:16)
[2019-12-15 10:00] VITALS: O2SAT 98
--- NOTE | 2019-12-15 10:32 | CASEMGMT ---
Social Work Discussed patient's code status. Pt requested full code. Nursing notified. MOLST form reviewed and placed in chart. Explained Medicare benefit. Pt disappointed with 14 day in room isolation, including getting therapy in room. Validated patient's feelings and understanding of not meeting initial expectations. Explained pt will still complete all minutes of therapy, twice daily in room, and most equipment will be brought into room for pt to still receive intensive therapy. Pt understands and agreed to see how the next few days go. If pt not satisfied, SW offered to DC home with outpatient therapy or transfer to another SNF that does allow out of room therapy. Pt appreciative. Will continue to follow. DEVONTE Cazares
[2019-12-15] MEDS: Tuberculin,Purif.prot.deriv. 50 TU/ML Vial 5 ML ID (11:49)
[2019-12-15 14:33] VITALS: BP 136/64; PULSE 57; RESP 15; TEMP 36.4; O2SAT 97
[2019-12-15] MEDS: Pravastatin 40 MG Tablet PO (21:09)
[2019-12-16 06:28] VITALS: BP 144/45; PULSE 57; RESP 16; TEMP 36.8; O2SAT 99
[2019-12-16] MEDS: Atenolol 50 MG Tablet PO (06:30)
[2019-12-16] MEDS: Nystatin Powder 15gm Bottle 1 APPLIC TOPICAL ×2 (06:30→16:28)
[2019-12-16] MEDS: Senna/Docusate Sodium 1 Tablet PO ×2 (06:30→16:28)
[2019-12-16] MEDS: Magnesium Chloride 64 MG Delay Rel.Tablet 128 MG PO (06:30)
[2019-12-16] MEDS: Polyethylene Glycol 3350 17 GM PACKET PO (06:30)
[2019-12-16] MEDS: Acetaminophen 500 MG Tablet 1000 MG PO ×3 (06:30→21:12)
[2019-12-16] MEDS: Cyanocobalamin 500 MCG Tablet PO (06:30)
[2019-12-16] MEDS: Pantoprazole Sodium 20 MG Tablet PO (06:30)
[2019-12-16] MEDS: Levothyroxine 50 MCG Tablet PO (06:34)
[2019-12-16] MEDS: Multivitamins,Therapeutic Tablet 1 TABLET PO (07:50)
[2019-12-16] MEDS: Calcium Carbonate 500 MG Tablet PO (07:50)
[2019-12-16] MEDS: Aspirin 81 MG TAB.CHEW PO ×2 (07:50→16:28)
[2019-12-16] MEDS: Iron Polysaccharide Complex 150 MG CAPSULE PO (07:50)
[2019-12-16] MEDS: Celecoxib 200 MG Capsule PO (07:50)
[2019-12-16 12:17] VITALS: PULSE 82; RESP 16; O2SAT 96
--- NOTE | 2019-12-16 13:45 | NURSING ---
Resident and sonBaldomero notified of COVID Outbreak status. Left message for daughterAnya to call.
[2019-12-16 15:09] VITALS: BP 134/72; PULSE 82; RESP 16; TEMP 36.6; O2SAT 96
[2019-12-16] MEDS: Pravastatin 40 MG Tablet PO (21:12)
[2019-12-17 05:38] VITALS: BP 148/66; PULSE 61; RESP 18; TEMP 36.4; O2SAT 98
[2019-12-17] MEDS: Magnesium Chloride 64 MG Delay Rel.Tablet 128 MG PO (05:40)
[2019-12-17] MEDS: Cyanocobalamin 500 MCG Tablet PO (05:40)
[2019-12-17] MEDS: Acetaminophen 500 MG Tablet 1000 MG PO ×3 (05:40→20:22)
[2019-12-17] MEDS: Senna/Docusate Sodium 1 Tablet PO (05:41)
[2019-12-17] MEDS: Pantoprazole Sodium 20 MG Tablet PO (05:41)
[2019-12-17] MEDS: Polyethylene Glycol 3350 17 GM PACKET PO (05:41)
[2019-12-17] MEDS: Levothyroxine 50 MCG Tablet PO (05:42)
[2019-12-17] MEDS: Nystatin Powder 15gm Bottle 1 APPLIC TOPICAL (05:43)
[2019-12-17] MEDS: Atenolol 50 MG Tablet PO (05:43)
[2019-12-17] MEDS: Bisacodyl 10 MG Suppository RECTAL (05:50)
[2019-12-17] MEDS: Calcium Carbonate 500 MG Tablet PO (08:27)
[2019-12-17] MEDS: Celecoxib 200 MG Capsule PO (08:28)
[2019-12-17] MEDS: Iron Polysaccharide Complex 150 MG CAPSULE PO (08:28)
[2019-12-17] MEDS: Multivitamins,Therapeutic Tablet 1 TABLET PO (08:28)
[2019-12-17] MEDS: Aspirin 81 MG TAB.CHEW PO ×2 (08:28→16:00)
[2019-12-17 14:20] VITALS: BP 127/50; PULSE 60; RESP 18; TEMP 36.3; O2SAT 97
[2019-12-17] MEDS: Pravastatin 40 MG Tablet PO (20:22)
[2019-12-18 05:45] VITALS: BP 122/88; PULSE 61; RESP 18; TEMP 36.3; O2SAT 94
[2019-12-18] MEDS: Atenolol 50 MG Tablet PO (05:50)
[2019-12-18] MEDS: Pantoprazole Sodium 20 MG Tablet PO (05:50)
[2019-12-18] MEDS: Magnesium Chloride 64 MG Delay Rel.Tablet 128 MG PO (05:50)
[2019-12-18] MEDS: Cyanocobalamin 500 MCG Tablet PO (05:50)
[2019-12-18] MEDS: Acetaminophen 500 MG Tablet 1000 MG PO ×3 (05:50→21:04)
[2019-12-18] MEDS: Levothyroxine 50 MCG Tablet PO (05:51)
[2019-12-18] MEDS: Nystatin Powder 15gm Bottle 1 APPLIC TOPICAL (05:52)
[2019-12-18] MEDS: Aspirin 81 MG TAB.CHEW PO ×2 (08:48→16:45)
[2019-12-18] MEDS: Calcium Carbonate 500 MG Tablet PO (08:48)
[2019-12-18] MEDS: Multivitamins,Therapeutic Tablet 1 TABLET PO (08:48)
[2019-12-18] MEDS: Iron Polysaccharide Complex 150 MG CAPSULE PO (08:48)
[2019-12-18] MEDS: Celecoxib 200 MG Capsule PO (08:48)
--- NOTE | 2019-12-18 11:33 | PCM.PN.RX ---
<Arin Bassett M - Last Filed: 12/18/19 11:33> Progress Note - Pharmacy Subjective: TCU ADMISSION Objective: Allergies Tetracyclines Allergy (Verified 12/13/19 07:02) PT UNSURE OF REACTION psuedotumor Current Medications Generic Name Dose Route Start Last Admin Trade Name Freq PRN Reason Stop Dose Admin Acetaminophen 1,000 mg 12/14/19 22:00 12/18/19 05:50 Acetaminophen 500 Mg Tablet PO 1,000 mg Q8 KARIS Administration Aspirin 81 mg 12/15/19 08:00 12/18/19 08:48 Aspirin 81 Mg Tab.Chew PO 01/10/20 20:00 81 mg BIDCM KARIS Administration Atenolol 50 mg 12/15/19 06:00 12/18/19 05:50 Atenolol 50 Mg Tablet PO 50 mg DAILY KARIS Administration Bisacodyl 10 mg 12/14/19 21:24 12/17/19 05:50 Bisacodyl 10 Mg Suppository RECTAL 10 mg DAILY PRN Administration Constipation Calcium Carbonate 500 mg 12/15/19 08:00 12/18/19 08:48 Calcium Carbonate 500 Mg Tablet PO 500 mg DAILYCM KARIS Administration Celecoxib 200 mg 12/15/19 08:00 12/18/19 08:48 Celecoxib 200 Mg Capsule PO 200 mg DAILYCM KARIS Administration Cyanocobalamin 500 mcg 12/15/19 06:00 12/18/19 05:50 Cyanocobalamin 500 Mcg Tablet PO 500 mcg DAILY KARIS Administration Ergocalciferol 50,000 unit 12/18/19 06:00 12/18/19 05:51 Ergocalciferol 50,000 Unit Capsule PO 50,000 unit Q7D KARIS Administration Levothyroxine Sodium 50 mcg 12/15/19 06:00 12/18/19 05:51 Levothyroxine 50 Mcg Tablet PO 50 mcg DAILY KARIS Administration Magnesium Chloride 128 mg 12/15/19 06:00 12/18/19 05:50 Magnesium Chloride 64 Mg Delay Rel.Tablet PO 128 mg DAILY KARIS Administration Magnesium Hydroxide 30 ml 12/14/19 21:23 Magnesium Hydroxide 30 Ml Udc PO DAILY PRN Constipation Multivitamins 1 tablet 12/15/19 08:00 12/18/19 08:48 Multivitamins,Therapeutic Tablet PO 1 tablet DAILY@0800 [facility] Administration Nystatin 1 applic 12/15/19 06:00 12/18/19 05:52 Nystatin Powder 15gm Bottle TOPICAL 1 applicatio BID [facility] Administration Protocol Ondansetron HCl 4 mg 12/14/19 17:37 Ondansetron Odt 4 Mg Tablet PO Q8H PRN PRN NAUSEA Oxycodone HCl 2.5 mg 12/14/19 17:37 Oxycodone 5 Mg Tablet PO Q4H PRN PRN Pain Score 4-10 Pantoprazole Sodium 20 mg 12/15/19 06:00 12/18/19 05:50 Pantoprazole Sodium 20 Mg Tablet PO 20 mg DAILY [facility] Administration Polyethylene Glycol 17 gm 12/15/19 06:00 12/18/19 05:51 Polyethylene Glycol 3350 17 Gm Packet PO Not Given DAILY [facility] Polysaccharide Iron Complex 150 mg 12/15/19 08:00 12/18/19 08:48 Iron Polysaccharide Complex 150 Mg Capsule PO 150 mg DAILYCM [facility] Administration Pravastatin Sodium 40 mg 12/14/19 22:00 12/17/19 20:22 Pravastatin 40 Mg Tablet PO 40 mg QHS [facility] Administration Senna/Docusate Sodium 1 tablet 12/15/19 06:00 12/18/19 05:51 Senna/Docusate Sodium 1 Tablet PO Not Given BID [facility] Tuberculin PPD 5 tu 12/22/19 10:00 Tuberculin,Purif.Prot.Deriv. 50 Tu/Ml Vial ID 12/22/19 10:01 X1 ONE Problem List Debility (Acute) Osteoarthritis of right hip (Acute) Diabetes mellitus (Chronic) Hypertension (Chronic) Hyperlipidemia (Chronic) Hypothyroidism (Chronic) Osteoarthritis (Chronic) Body mass index (BMI) 35 or more (Chronic) GERD (gastroesophageal reflux disease) (Chronic) Vitamin D deficiency (Chronic) Hypomagnesemia (Chronic) Vital Signs Temp Pulse Resp BP Pulse Ox 97.4 F L 61 18 122/88 H 94 12/18/19 05:45 12/18/19 05:45 12/18/19 05:45 12/18/19 05:45 12/18/19 05:45 Oxygen Delivery Method Room Air Weight: 107.048 kg Body Mass Index (BMI) 43.1 Finger Stick Blood Glucose 175 Sodium 140 mmol/L (136-145) 12/15/19 05:20 Potassium 4.4 mmol/L (3.5-5.1) 12/15/19 05:20 Chloride 107 mmol/L (98-107) 12/15/19 05:20 Carbon Dioxide 28.0 mmol/L (21.0-32.0) 12/15/19 05:20 Anion Gap 5 (5-15) 12/15/19 05:20 BUN 16 mg/dL (7-18) 12/15/19 05:20 Creatinine 0.85 mg/dL (0.55-1.02) 12/15/19 05:20 Est GFR (MDRD) Af Amer 84 mL/min (>60) 12/15/19 05:20 Est GFR (MDRD) Non-Af 70 mL/min (>60) 12/15/19 05:20 BUN/Creatinine Ratio 18.8 RATIO (-20) 12/15/19 05:20 Glucose 139 mg/dL (74-106) H 12/15/19 05:20 Assessment/Plan: 1. Pain: Tylenol 1000mg PO Q8H , Oxycodone 2.5mg PO Q4H PRN pain score 4-10/10. Please monitor for improvement/worsening of pain and PRN use. 2. DVT prophylaxis: Aspirin 81mg PO BID until 01/10/20. Please monitor for S/S of bleeding. 3. Hypertension: Atenolol 50mg PO daily. Please monitor BP (last BP 12/18/19 ; 122/88). 4. Osteoarthritis: Celebrex 200mg PO daily. Please monitor for improvement/worsening of osteoarthritis. 5. Hyperlipidemia: Pravastatin 40mg PO QHS. Please monitor lipid levels, and muscle pain. 6. General Wellness: TUMS 500mg PO daily , B12 500mcg PO daily , Vitamin D2 50,000 units PO weekly , Magnesium chloride 128mg PO daily , MVI 1 tablet PO daily. 7. Hypothyroidism: Levothyroxine 50mcg PO daily. Please monitor thyroid function tests as clinically indicated (last TSH 12/14/19). 8. Nausea: Zofran 4mg PO Q8H PRN nausea. Please monitor for improvement/ worsening of nausea. 9. GERD: Pantoprazole 20mg PO daily. Please monitor for improvement/worsening of GERD. Psychotropic Medications: None Unnecessary Medications: 1. Polysaccharide Iron Complex 150mg PO daily , monitor H/H ( Last H/H 12/15/19) Bowel Regimen: Bisacodyl 10mg KS daily PRN constipation, MOM 30mL PO daily PRN constipation, Miralax 17gm PO daily, Senna-S 1 tablet PO BID , please monitor for S/S of diarrhea/constipation and PRN use Date of Note:: 12/18/19 - Provider Comments Provider responsibility: Provider responsible to enter orders to implement recommendations <Jeevan Burnham Chi - Last Filed: 12/18/19 15:08> Progress Note - Pharmacy Subjective: [] Objective: Allergies Tetracyclines Allergy (Verified 12/13/19 07:02) PT UNSURE OF REACTION psuedotumor Current Medications Generic Name Dose Route Start Last Admin Trade Name Freq PRN Reason Stop Dose Admin Acetaminophen 1,000 mg 12/14/19 22:00 12/18/19 15:03 Acetaminophen 500 Mg Tablet PO 1,000 mg Q8 KARIS Administration Aspirin 81 mg 12/15/19 08:00 12/18/19 08:48 Aspirin 81 Mg Tab.Chew PO 01/10/20 20:00 81 mg BIDCM KARIS Administration Atenolol 50 mg 12/15/19 06:00 12/18/19 05:50 Atenolol 50 Mg Tablet PO 50 mg DAILY KARIS Administration Bisacodyl 10 mg 12/14/19 21:24 12/17/19 05:50 Bisacodyl 10 Mg Suppository RECTAL 10 mg DAILY PRN Administration Constipation Calcium Carbonate 500 mg 12/15/19 08:00 12/18/19 08:48 Calcium Carbonate 500 Mg Tablet PO 500 mg DAILYCM KARIS Administration Celecoxib 200 mg 12/15/19 08:00 12/18/19 08:48 Celecoxib 200 Mg Capsule PO 200 mg DAILYCM KARIS Administration Cyanocobalamin 500 mcg 12/15/19 06:00 12/18/19 05:50 Cyanocobalamin 500 Mcg Tablet PO 500 mcg DAILY KARIS Administration Ergocalciferol 50,000 unit 12/18/19 06:00 12/18/19 05:51 Ergocalciferol 50,000 Unit Capsule PO 50,000 unit Q7D KARIS Administration Levothyroxine Sodium 50 mcg 12/15/19 06:00 12/18/19 05:51 Levothyroxine 50 Mcg Tablet PO 50 mcg DAILY KARIS Administration Magnesium Chloride 128 mg 12/15/19 06:00 12/18/19 05:50 Magnesium Chloride 64 Mg Delay Rel.Tablet PO 128 mg DAILY [facility] Administration Magnesium Hydroxide 30 ml 12/14/19 21:23 Magnesium Hydroxide 30 Ml Udc PO DAILY PRN Constipation Multivitamins 1 tablet 12/15/19 08:00 12/18/19 08:48 Multivitamins,Therapeutic Tablet PO 1 tablet DAILY@0800 [facility] Administration Nystatin 1 applic 12/15/19 06:00 12/18/19 15:02 Nystatin Powder 15gm Bottle TOPICAL Not Given BID [facility] Protocol Ondansetron HCl 4 mg 12/14/19 17:37 Ondansetron Odt 4 Mg Tablet PO Q8H PRN PRN NAUSEA Oxycodone HCl 2.5 mg 12/14/19 17:37 Oxycodone 5 Mg Tablet PO Q4H PRN PRN Pain Score 4-10 Pantoprazole Sodium 20 mg 12/15/19 06:00 12/18/19 05:50 Pantoprazole Sodium 20 Mg Tablet PO 20 mg DAILY [facility] Administration Polyethylene Glycol 17 gm 12/15/19 06:00 12/18/19 05:51 Polyethylene Glycol 3350 17 Gm Packet PO Not Given DAILY [facility] Polysaccharide Iron Complex 150 mg 12/15/19 08:00 12/18/19 08:48 Iron Polysaccharide Complex 150 Mg Capsule PO 150 mg DAILYCM [facility] Administration Pravastatin Sodium 40 mg 12/14/19 22:00 12/17/19 20:22 Pravastatin 40 Mg Tablet PO 40 mg QHS [facility] Administration Senna/Docusate Sodium 1 tablet 12/15/19 06:00 12/18/19 15:02 Senna/Docusate Sodium 1 Tablet PO Not Given BID [facility] Tuberculin PPD 5 tu 12/22/19 10:00 Tuberculin,Purif.Prot.Deriv. 50 Tu/Ml Vial ID 12/22/19 10:01 X1 ONE Problem List Debility (Acute) Osteoarthritis of right hip (Acute) Diabetes mellitus (Chronic) Hypertension (Chronic) Hyperlipidemia (Chronic) Hypothyroidism (Chronic) Osteoarthritis (Chronic) Body mass index (BMI) 35 or more (Chronic) GERD (gastroesophageal reflux disease) (Chronic) Vitamin D deficiency (Chronic) Hypomagnesemia (Chronic) Vital Signs Temp Pulse Resp BP Pulse Ox 97.8 F 69 18 133/65 H 98 12/18/19 13:31 12/18/19 13:31 12/18/19 13:31 12/18/19 13:31 12/18/19 13:31 Oxygen Delivery Method Room Air Weight: 107.048 kg Body Mass Index (BMI) 43.1 Finger Stick Blood Glucose 175 Sodium 140 mmol/L (136-145) 12/15/19 05:20 Potassium 4.4 mmol/L (3.5-5.1) 12/15/19 05:20 Chloride 107 mmol/L (98-107) 12/15/19 05:20 Carbon Dioxide 28.0 mmol/L (21.0-32.0) 12/15/19 05:20 Anion Gap 5 (5-15) 12/15/19 05:20 BUN 16 mg/dL (7-18) 12/15/19 05:20 Creatinine 0.85 mg/dL (0.55-1.02) 12/15/19 05:20 Est GFR (MDRD) Af Amer 84 mL/min (>60) 12/15/19 05:20 Est GFR (MDRD) Non-Af 70 mL/min (>60) 12/15/19 05:20 BUN/Creatinine Ratio 18.8 RATIO (-) 12/15/19 05:20 Glucose 139 mg/dL (74-106) H 12/15/19 05:20 Assessment/Plan: Psychotropic Medications: Unnecessary Medications: Bowel Regimen: - Provider Comments Provider responsibility: Provider responsible to enter orders to implement recommendations Provider Comments to Recommendations by Pharmacy: Agree
[2019-12-18 13:31] VITALS: BP 133/65; PULSE 69; RESP 18; TEMP 36.6; O2SAT 98
--- NOTE | 2019-12-18 17:55 | NURSING ---
Daughter, Anya, notified of negative COVID results.
[2019-12-18] MEDS: Pravastatin 40 MG Tablet PO (21:04)
[2019-12-19 06:14] VITALS: BP 131/68; PULSE 64; RESP 16; TEMP 36.8; O2SAT 95
[2019-12-19] MEDS: Acetaminophen 500 MG Tablet 1000 MG PO ×3 (06:16→20:40)
[2019-12-19] MEDS: Atenolol 50 MG Tablet PO (06:16)
[2019-12-19] MEDS: Levothyroxine 50 MCG Tablet PO (06:16)
[2019-12-19] MEDS: Polyethylene Glycol 3350 17 GM PACKET PO (06:16)
[2019-12-19] MEDS: Magnesium Chloride 64 MG Delay Rel.Tablet 128 MG PO (06:16)
[2019-12-19] MEDS: Pantoprazole Sodium 20 MG Tablet PO (06:17)
[2019-12-19] MEDS: Cyanocobalamin 500 MCG Tablet PO (06:17)
[2019-12-19] MEDS: Celecoxib 200 MG Capsule PO (08:26)
[2019-12-19] MEDS: Aspirin 81 MG TAB.CHEW PO ×2 (08:26→16:35)
[2019-12-19] MEDS: Calcium Carbonate 500 MG Tablet PO (08:26)
[2019-12-19] MEDS: Multivitamins,Therapeutic Tablet 1 TABLET PO (08:26)
[2019-12-19] MEDS: Iron Polysaccharide Complex 150 MG CAPSULE PO (08:26)
--- NOTE | 2019-12-19 13:14 | CASEMGMT ---
Social Work Spoke with patient and updated on COVID outbreak status. Pt agreeable to remain in TCU and have care plan meeting as scheduled 12/19. Pt is requesting to DC 12/21 and IDT agreeable. Pt requesting [facility] PT/OT. Referral made. No DME needs. Plan: DC home alone 12/21 with [facility], no DME DEVONTE CazaresW
[2019-12-19 16:00] VITALS: BP 138/64; PULSE 68; RESP 18; TEMP 36.8; O2SAT 96
--- NOTE | 2019-12-19 16:19 | NURSING ---
Resident and daughter, Anya, notified of staff member testing positive for COVID19.
[2019-12-19] MEDS: Pravastatin 40 MG Tablet PO (20:40)
--- NOTE | 2019-12-19 21:16 | PCM.DC ---
- Discharge Diagnoses Current Active Problems: Current Active and Chronic Problems Debility (Acute) Osteoarthritis of right hip (Acute) Diabetes mellitus (Chronic) Hypertension (Chronic) Hyperlipidemia (Chronic) Hypothyroidism (Chronic) Osteoarthritis (Chronic) Body mass index (BMI) 35 or more (Chronic) GERD (gastroesophageal reflux disease) (Chronic) Vitamin D deficiency (Chronic) Hypomagnesemia (Chronic) You will use the following diet at home:: No restrictions, Regular Your food should be the consistency of: Regular Your liquids should be the consistency of: Regular/Thin Discharge Activity: Return to Normal Activity, May Shower, Use Walker Weight Bearing Status: Weight bearing as tolerated Call your doctor if you observe: Fever of 101 or Higher, Inability to urinate, Inability to have a bowel movement, Shortness of breath, Chest pain, Uncontrolled pain Allergies/Adverse Reactions: Allergies Tetracyclines Allergy (Verified 12/13/19 07:02) PT UNSURE OF REACTION psuedotumor Medications to take at Discharge Atenolol [Tenormin (beta lobo)] 50 mg PO DAILY 11/29/19 Biotin 5,000 mcg PO DAILY 11/29/19 Calcium Citrate 500 mg PO DAILY 11/29/19 Celecoxib [Celebrex] 200 mg PO DAILY 11/29/19 Cyanocobalamin (Vitamin B-12) [Vitamin B-12] 500 mcg SL DAILY 11/29/19 Ergocalciferol [Vitamin D] 50,000 unit PO Q7D 11/29/19 Levothyroxine Sodium 50 mcg PO DAILY 11/29/19 Magnesium Oxide [Magnesium] 500 mg PO DAILY 11/29/19 Multivitamin [One-Daily Multi-Vitamin] 1 ea PO DAILY 11/29/19 Omeprazole 20 mg PO DAILY 11/29/19 Pravastatin Sodium 40 mg PO QHS 11/29/19 Acetaminophen [Tylenol] 1,000 mg PO Q8 12/14/19 Aspirin [Aspirin, Baby] 81 mg PO BIDCM #34 tab.chew 12/19/19 Iron Polysaccharide Complex [Ferrex 150] 150 mg PO DAILYCM #30 cap 12/19/19 Nystatin Powder [Mycostatin Powder] 1 applic TOPICAL BID bottle 12/19/19 The following prescriptions were given: Aspirin [Aspirin, Baby] 81 mg PO BIDCM #34 tab.chew Transmission Status: Pending to [facility]/pharmacy #[id number] Iron Polysaccharide Complex [Ferrex 150] 150 mg PO DAILYCM #30 cap Transmission Status: Pending to [facility]/pharmacy #[id number] Primary Care Physician: Fifi Garay DO [Primary Care Provider] - Please follow up with your Primary Care Physician in: 1 week. Test Results: Test results from this visit will be discussed in further detail at your follow-up appointment, if applicable. Please Follow Up With: Neo Manzo PA-C When: 2 weeks. Proposed Discharge Date: 12/22/19
--- NOTE | 2019-12-19 21:18 | PCM.DC.SUM ---
Discharge Date and Diagnosis - Problem List Patient Problems: Active and Suspected Problems Debility (Acute) Osteoarthritis of right hip (Acute) Date of Admission: 12/14/19 Date of Discharge: 12/22/19 - Primary Discharge Diagnosis Acute Problems: Active Problems Debility (Acute) Osteoarthritis of right hip (Acute) - Secondary Discharge Diagnosis Chronic Problems: Chronic Problems Diabetes mellitus (Chronic) Hypertension (Chronic) Hyperlipidemia (Chronic) Hypothyroidism (Chronic) Osteoarthritis (Chronic) Body mass index (BMI) 35 or more (Chronic) GERD (gastroesophageal reflux disease) (Chronic) Vitamin D deficiency (Chronic) Hypomagnesemia (Chronic) Hospital Course and Treatment Imaging Results: 12/14/19 17:56 Diet: Cardiac: Calorie-Controlled How many daily calories?: 1800 calorie Microbiology 12/18/19 10:46 Mucosa - Nose - Final Operations: None Procedures: None Summary of Care Provided: The patient is a 69 year old Female with below past medical history hospitalized for right total hip replacement 12/13/19 per Orthopedics, complicated by bradycardia, admitted to TCU with debility, here for rehabilitation, strengthening, prior to discharge home alone. Discharge home alone, [facility] Outpatient PT/OT, No durable medical equipment needs. Patient Problems: Active and Suspected Problems Debility (Acute) Osteoarthritis of right hip (Acute) - Physical Exam Vitals/I&O's: Vital Signs Temp Pulse Resp BP Pulse Ox 98.2 F 68 18 138/64 H 96 12/19/19 16:00 12/19/19 16:00 12/19/19 16:00 12/19/19 16:00 12/19/19 16:00 Oxygen Delivery Method Room Air Weight: 109.316 kg Body Mass Index (BMI) 43.1 Finger Stick Blood Glucose 175 Intake and Output for Last 24 Hours 12/17/19 12/18/19 12/19/19 23:59 23:59 23:59 Intake Total 720 / 720 1080 / 1080 840 / 840 Balance 720 / 720 1080 / 1080 840 / 840 Microbiology Past 72 Hours 12/18/19 10:46 Mucosa - Nose - Final Current Medications Acetaminophen (Acetaminophen 500 Mg Tablet) 1,000 mg PO Q8 [facility] Last Admin: 12/19/19 20:40 Dose: 1,000 mg Documented by: Aspirin (Aspirin 81 Mg Tab.Chew) 81 mg PO BIDCM [facility] Stop: 01/10/20 20:00 Last Admin: 12/19/19 16:35 Dose: 81 mg Documented by: Atenolol (Atenolol 50 Mg Tablet) 50 mg PO DAILY [facility] Last Admin: 12/19/19 06:16 Dose: 50 mg Documented by: Bisacodyl (Bisacodyl 10 Mg Suppository) 10 mg RECTAL DAILY PRN PRN Reason: Constipation Last Admin: 12/17/19 05:50 Dose: 10 mg Documented by: Calcium Carbonate ([facility] 500 Mg Tablet) [facility] Admin: 12/19/19 08:26 Dose: 500 mg Documented by: Celecoxib (Cele[facility]ib 200 Mg Capsule) [facility] Last Admin: 12/19/19 08:26 Dose: 200 mg Documented by: Cyanocobalamin (Cyanocobalamin 500 Mcg Tablet) 500 mcg PO DAILY [facility] Last Admin: 12/19/19 06:17 Dose: 500 mcg Documented by: Ergocalciferol (Ergocalciferol 50,000 Unit Capsule) 50,000 unit PO Q7D [facility] Last Admin: 12/18/19 05:51 Dose: 50,000 unit Documented by: Levothyroxine Sodium (Levothyroxine 50 Mcg Tablet) 50 mcg PO DAILY [facility] Last Admin: 12/19/19 06:16 Dose: 50 mcg Documented by: Magnesium Chloride (Magnesium Chloride 64 Mg Delay Rel.Tablet) 128 mg PO DAILY [facility] Last Admin: 12/19/19 06:16 Dose: 128 mg Documented by: Magnesium Hydroxide (Magnesium Hydroxide 30 Ml Udc) 30 ml PO DAILY PRN PRN Reason: Constipation Multivitamins (Multivitamins,Therapeutic Tablet) 1 tablet PO DAILY@0800 [facility] Last Admin: 12/19/19 08:26 Dose: 1 tablet Documented by: Nystatin (Nystatin Powder 15gm Bottle) 1 applic TOPICAL BID [facility]; Protocol Last Admin: 12/19/19 16:35 Dose: Not Given Documented by: Ondansetron HCl (Ondansetron Odt 4 Mg Tablet) 4 mg PO Q8H PRN PRN PRN Reason: NAUSEA Oxycodone HCl (Oxycodone 5 Mg Tablet) 2.5 mg PO Q4H PRN PRN PRN Reason: Pain Score 4-10 Pantoprazole Sodium (Pantoprazole Sodium 20 Mg Tablet) 20 mg PO DAILY [facility] Last Admin: 12/19/19 06:17 Dose: 20 mg Documented by: Polyethylene Glycol (Polyethylene Glycol 3350 17 Gm Packet) 17 gm PO DAILY [facility] Last Admin: 12/19/19 06:16 Dose: 17 gm Documented by: Polysaccharide Iron Complex (Iron Polysaccharide Complex 150 Mg Capsule) [facility] Last Admin: 12/19/19 08:26 Dose: 150 mg Documented by: Pravastatin Sodium (Pravastatin 40 Mg Tablet) 40 mg PO QHS [facility] Last Admin: 12/19/19 20:40 Dose: 40 mg Documented by: Senna/Docusate Sodium (Senna/Docusate Sodium 1 Tablet) 1 tablet PO BID [facility] Last Admin: 12/19/19 16:35 Dose: Not Given Documented by: Tuberculin PPD (Tuberculin,Purif.Prot.Deriv. 50 Tu/Ml Vial) 5 tu ID [id number] ONE Stop: 12/22/19 10:01 Discharge Diet: No Restrictions Discharge Activity: Return to Normal Activity, May Shower, Use Walker Weight Bearing Status: Weight bearing as tolerated Call your doctor if you observe: Fever of 101 or Higher, Inability to urinate, Inability to have a bowel movement, Shortness of breath, Chest pain, Uncontrolled pain Home Medications: Medications to take at Discharge Atenolol [Tenormin (beta lobo)] 50 mg PO DAILY 11/29/19 Biotin 5,000 mcg PO DAILY 11/29/19 Calcium Citrate 500 mg PO DAILY 11/29/19 Celecoxib [Celebrex] 200 mg PO DAILY 11/29/19 Cyanocobalamin (Vitamin B-12) [Vitamin B-12] 500 mcg SL DAILY 11/29/19 Ergocalciferol [Vitamin D] 50,000 unit PO Q7D 11/29/19 Levothyroxine Sodium 50 mcg PO DAILY 11/29/19 Magnesium Oxide [Magnesium] 500 mg PO DAILY 11/29/19 Multivitamin [One-Daily Multi-Vitamin] 1 ea PO DAILY 11/29/19 Omeprazole 20 mg PO DAILY 11/29/19 Pravastatin Sodium 40 mg PO QHS 11/29/19 Acetaminophen [Tylenol] 1,000 mg PO Q8 12/14/19 Aspirin [Aspirin, Baby] 81 mg PO BIDCM #34 tab.chew 12/19/19 Iron Polysaccharide Complex [Ferrex 150] 150 mg PO DAILYCM #30 cap 12/19/19 Nystatin Powder [Mycostatin Powder] 1 applic TOPICAL BID bottle 12/19/19 Following Prescriptions Were Given to Patient: Aspirin [Aspirin, Baby] 81 mg PO BIDCM #34 tab.chew Transmission Status: Pending to [facility]/pharmacy #[id number] Iron Polysaccharide Complex [Ferrex 150] 150 mg PO DAILYCM #30 cap Transmission Status: Pending to [facility]/pharmacy #[id number] Primary Care Physician: Fifi Garay DO [Primary Care Provider] - Please follow up with your Primary Care Physician in: 1 week. Please Follow Up With: Neo Manzo PA-C When: 2 weeks. Disposition: Home Minutes spent on discharge:: 30 Patient Condition:: Stable Medical Necessity - Tobacco Use Smoking Status: Never smoker Tobacco Use: Non-smoker Meaningful Use Info Meaningful Use Diagnoses (Choose all that apply): None applicable
[2019-12-20 06:23] VITALS: BP 143/70; PULSE 59; RESP 18; TEMP 36.9; O2SAT 97
[2019-12-20] MEDS: Atenolol 50 MG Tablet PO (06:24)
[2019-12-20] MEDS: Acetaminophen 500 MG Tablet 1000 MG PO ×3 (06:24→20:29)
[2019-12-20] MEDS: Pantoprazole Sodium 20 MG Tablet PO (06:24)
[2019-12-20] MEDS: Polyethylene Glycol 3350 17 GM PACKET PO (06:24)
[2019-12-20] MEDS: Magnesium Chloride 64 MG Delay Rel.Tablet 128 MG PO (06:24)
[2019-12-20] MEDS: Cyanocobalamin 500 MCG Tablet PO (06:24)
[2019-12-20] MEDS: Levothyroxine 50 MCG Tablet PO (06:25)
[2019-12-20] MEDS: Calcium Carbonate 500 MG Tablet PO (08:34)
[2019-12-20] MEDS: Iron Polysaccharide Complex 150 MG CAPSULE PO (08:35)
[2019-12-20] MEDS: Aspirin 81 MG TAB.CHEW PO ×2 (08:35→17:18)
[2019-12-20] MEDS: Multivitamins,Therapeutic Tablet 1 TABLET PO (08:35)
[2019-12-20] MEDS: Celecoxib 200 MG Capsule PO (08:35)
[2019-12-20 16:00] VITALS: BP 134/66; PULSE 85; RESP 18; TEMP 36.8; O2SAT 97
--- NOTE | 2019-12-20 16:37 | CASEMGMT ---
Social Work IDT met with patient and dtr via conference call for care plan meeting. Discussed patient's progress in therapy. Pt is mod I for bed mobility, tx and ambulating 150 ft with rollator/FWW. SbA for simulated steps. Using 2.5# wts for LE exercises. Pt is adlib in room and Ashley for all ADLS. Pt is discharging home alone 12/22. Will f/u with Dr. River 12/26 then f/u with outpatient therapy PT/OT. Nena Fontana, CONTACT [employer] LATHE OPERATOR EMS EDUCATOR
[2019-12-20] MEDS: Pravastatin 40 MG Tablet PO (20:30)
[2019-12-21 05:54] LABS: Absolute Lymphocyte Count 2.61 X10^3/uL (0.83-4.51); Absolute Neutrophil Count 2.4 X10^3/uL (2.0-7.7); Basophil# 0.07 X10^3/uL; Basophil% 1.1 % (0-1); Eosinophil# 0.65 X10^3/uL; Eosinophils% 10.5 % (0-5); Hematocrit 32.5 % (37-47); Hemoglobin 10.3 g/dL (12.0-15.0); Lymphocyte # 2.61 X10^3/ul (4.0); Lymphocyte % 42.2 % (19-41); Mean Corp Hgb Conc 31.7 g/dL (32-36); Mean Corpuscular Hgb 30.5 pg (27.0-32.0); Mean Corpuscular Volume 96.2 fL (81-99); Mean Platelet Vol. 10.9 fl (6.2-12.0); Monocyte# 0.45 X10^3/uL; Monocyte% 7.3 % (0-10); NRBC Flagged by Analyzer 0 % (0-5); Neutrophil # 2.38 X10^3/uL (2.7-7.7); Neutrophil % 38.6 % (47-70); Platelet Count 352 K/mm3 (150-450); RBC Distribution Width CV 13.4 % (11.6-14.6); RBC Distribution Width SD 47.7 fl (35.1-43.9); Red Blood Count 3.38 M/mm3 (4.2-5.4); White Blood Count 6.2 K/mm3 (4.4-11.0)
[2019-12-21 06:03] VITALS: BP 140/83; PULSE 61; RESP 18; TEMP 36.7; O2SAT 98
[2019-12-21 06:27] LABS: Anion Gap 4 (5-15); BUN 15 mg/dL (7-18); BUN/Creat Ratio 20.2 RATIO (10-20); Calcium,Total 8.9 mg/dL (8.5-10.1); Chloride 105 mmol/L (98-107); Creatinine, Serum 0.74 mg/dL (0.55-1.02); EST Glomerular Filtration Rate 82 mL/min (>60); Est Glom Filt Rate - Afr Amer 99 mL/min (>60); Estimated Creatinine Clearance 40.81 ml/min; Glucose 144 mg/dL (74-106); Potassium 4.5 mmol/L (3.5-5.1); Sodium Level 140 mmol/L (136-145)
[2019-12-21] MEDS: Celecoxib 200 MG Capsule PO (08:21)
[2019-12-21] MEDS: Iron Polysaccharide Complex 150 MG CAPSULE PO (08:22)
[2019-12-21] MEDS: Calcium Carbonate 500 MG Tablet PO (08:22)
[2019-12-21] MEDS: Aspirin 81 MG TAB.CHEW PO ×2 (08:22→17:16)
[2019-12-21] MEDS: Multivitamins,Therapeutic Tablet 1 TABLET PO (08:22)
[2019-12-21] MEDS: Levothyroxine 50 MCG Tablet PO (10:26)
[2019-12-21] MEDS: Atenolol 50 MG Tablet PO (10:26)
[2019-12-21] MEDS: Acetaminophen 500 MG Tablet 1000 MG PO ×3 (10:26→21:13)
[2019-12-21] MEDS: Pantoprazole Sodium 20 MG Tablet PO (10:26)
[2019-12-21] MEDS: Magnesium Chloride 64 MG Delay Rel.Tablet 128 MG PO (10:26)
[2019-12-21] MEDS: Cyanocobalamin 500 MCG Tablet PO (10:27)
--- NOTE | 2019-12-21 10:28 | NURSING ---
Patient received all 0600 medication. This nurse verified with patient that all medications were given. Spoke with evening or night nurse supervisor nurse as well and she stated all medications were given. Called IT about the issue and they will be looking into the problem.
[2019-12-21] MEDS: Ondansetron ODT 4 MG Tablet PO (13:27)
[2019-12-21 17:01] VITALS: BP 122/60; PULSE 59; RESP 18; TEMP 36.7; O2SAT 98
[2019-12-21] MEDS: Pravastatin 40 MG Tablet PO (21:13)
[2019-12-22] MEDS: Celecoxib 200 MG Capsule PO (04:55)
[2019-12-22] MEDS: Levothyroxine 50 MCG Tablet PO (04:55)
[2019-12-22] MEDS: Magnesium Chloride 64 MG Delay Rel.Tablet 128 MG PO (04:55)
[2019-12-22] MEDS: Cyanocobalamin 500 MCG Tablet PO (04:55)
[2019-12-22] MEDS: Atenolol 50 MG Tablet PO (04:55)
[2019-12-22] MEDS: Acetaminophen 500 MG Tablet 1000 MG PO (04:55)
[2019-12-22] MEDS: Pantoprazole Sodium 20 MG Tablet PO (04:56)
[2019-12-22] MEDS: Nystatin Powder 15gm Bottle 1 APPLIC TOPICAL (04:56)
[2019-12-22 05:32] VITALS: BP 116/73; PULSE 58; RESP 18; TEMP 36.1; O2SAT 93
--- NOTE | 2019-12-27 11:18 | ADDICTION ---
Information for the mds was obtained from review of the clinical record, interview of resident, staff, and direct observation of resident's care.
== END 2019-12-22 07:03 | disposition home or self-care (01) | DRG 561 ==
PROVIDERS: Admitting Provider Family Medicine Geriatric Medicine; Visit Provider Family Medicine Geriatric Medicine
DX: Z47.1 Aftercare following joint replacement surgery (principal); Z96.641 Presence of right artificial hip joint; K21.9 Gastro-esophageal reflux disease without esophagitis; E78.5 Hyperlipidemia, unspecified; E11.9 Type 2 diabetes mellitus without complications; E03.9 Hypothyroidism, unspecified; I10 Essential (primary) hypertension; E55.9 Vitamin D deficiency, unspecified; Z79.1 Long term (current) use of non-steroidal anti-inflammatories (NSAID); Z79.890 Hormone replacement therapy; Z90.710 Acquired absence of both cervix and uterus; E58 Dietary calcium deficiency; E53.8 Deficiency of other specified B group vitamins
CPT/HCPCS: 36415; 73501; 73502; 76000; 80048; 82962; 84443; 85025; 85027; 87426; 87635; 88305; 88311; 94762; 97110; 97116; 97162; 97166; 97530; 97535; 97802; 99251; C1713; C1776; J7120; G0463; U0002